=== PATIENT | male | born 1970 | race Caucasian/White ===

== ENCOUNTER 2017-05-28 16:08 | Emergency (ER) | payer BC ==
[2017-05-28 16:24] VITALS: BP 142/85
--- NOTE | 2017-05-28 16:36 | UC ---
Skin Complaint HPI - HPI Summary HPI Summary: right diop with an open area that is now having drainage and increasing erythema - History of Current Complaint Chief Complaint: UCSkin Time Seen by Provider: 05/28/17 16:12 Stated Complaint: RT LEG INJURY Hx Obtained From: Patient Onset/Duration: Sudden Onset, Lasting Days, Worse Since - getting worse daily Skin Exposure Onset/Duration: Days Ago Timing: Constant Onset Severity: Mild Current Severity: Moderate Location: Discrete Character: Redness - 8x8 cm Aggravating Factor(s): Nothing Alleviating Factor(s): Nothing Associated Signs & Symptoms: Positive: Negative Related History: Trauma - Allergy/Home Medications Allergies/Adverse Reactions: Allergies Allergy/AdvReac Type Severity Reaction Status Date / Time Codeine Allergy Fever Verified 05/28/17 16:24 Morphine Allergy Anaphylatic Verified 05/28/17 16:24 Shock Home Medications: Home Medications Atorvastatin* [Lipitor*] 5 mg PO DAILY 05/28/17 [History Confirmed 05/28/17] Levothyroxine TAB* [Synthroid TAB*] 100 mcg PO DAILY 05/28/17 [History Confirmed 05/28/17] Loratadine [Claritin 10 MG CAP] 10 mg PO DAILY 05/28/17 [History Confirmed 05/28] Montelukast Sodium TAB* [Singulair TAB*] 10 mg PO DAILY 05/28/17 [History Confirmed 05/28/17] Ranitidine HCl [Zantac 150 Maximum Streng] 150 mg PO DAILY 05/28/17 [History Confirmed 05/28/17] Review of Systems Constitutional: Negative Skin: Other - 2x2 cm skin avulsion on righ diop with 8x8 cm erythema Eyes: Negative ENT: Negative Respiratory: Negative Cardiovascular: Negative Gastrointestinal: Negative Genitourinary: Negative Motor: Negative Neurovascular: Negative Musculoskeletal: Negative Neurological: Negative Psychological: Negative Is Patient Immunocompromised?: No All Other Systems Reviewed And Are Negative: Yes PMH/Surg Hx/FS Hx/Imm Hx Previously Healthy: No Endocrine History: Hypothyroidism, Dyslipidemia Cardiovascular History: Hypertension GI/ History: Gastroesophageal Reflux - Surgical History Surgical History: Yes Surgery Procedure, Year, and Place: Testicular torsion. T & A. Devated septum - Family History Known Family History: Positive: None - Social History Occupation: Employed Full-time Lives: With Family Alcohol Use: Occasionally Substance Use Type: None Smoking Status (MU): Never Smoked Tobacco Physical Exam Triage Information Reviewed: Yes Appearance: Well-Appearing, No Pain Distress, Well-Nourished Vital Signs: Initial Vital Signs Temp 98.2 F 05/28/17 16:19 Pulse 58 05/28/17 16:19 Resp 17 05/28/17 16:19 BP 142/85 05/28/17 16:19 Pulse Ox 99 05/28/17 16:19 Vital Signs Reviewed: Yes Eye Exam: Normal Eyes: Positive: Conjunctiva Clear ENT Exam: Normal ENT: Positive: Normal ENT inspection, Hearing grossly normal. Negative: Nasal congestion, Trismus, Muffled voice, Hoarse voice Dental Exam: Normal Neck exam: Normal Neck: Positive: Supple, Nontender Respiratory Exam: Normal Respiratory: Positive: Chest non-tender, No respiratory distress, No accessory muscle use Cardiovascular Exam: Normal Cardiovascular: Positive: RRR, Pulses Normal, Brisk Capillary Refill Abdominal Exam: Normal Musculoskeletal Exam: Normal Musculoskeletal: Positive: Strength Intact, ROM Intact, Edema @ - right ankle distal to skin avulsion Neurological Exam: Normal Psychological Exam: Normal Psychological: Positive: Normal Response To Family, Age Appropriate Behavior Skin Exam: Other Skin: Positive: breakdown - 2x2 cm with 8x8 erythema right lower leg, Other Course/Dx - Course Course Of Treatment: mild soap and water wash, keflex and bactrim, elevate legs follow with Dr. James - Diagnoses Provider Diagnoses: Cellulitis with wound rle, hypertension in poor control Discharge - Discharge Plan Condition: Stable Disposition: HOME Prescriptions: Cephalexin CAP* [Keflex CAP*] 500 mg PO QID #28 cap Cephalexin CAP* [Keflex CAP*] 500 mg PO QID #28 cap Mupirocin 2% CREAM* [Bactroban 2% CREAM*] 1 applic TOPICAL TID #1 tube Mupirocin 2% CREAM* [Bactroban 2% CREAM*] 1 applic TOPICAL TID #1 tube Sulfamethox/Trimethoprim DS* [Bactrim DS 800/160 TAB*] 1 tab PO BID #20 tab Sulfamethox/Trimethoprim DS* [Bactrim DS 800/160 TAB*] 1 tab PO BID #20 tab Patient Education Materials: Wound Infection (ED) Referrals: Kendy James MD [Medical Doctor] - 3 Days
== END 2017-05-28 16:39 | disposition home or self-care (01) ==
LOC: UCCORT 16:08
DX: L03.115 Cellulitis of right lower limb (principal); E03.9 Hypothyroidism, unspecified; E78.5 Hyperlipidemia, unspecified; I10 Essential (primary) hypertension; K21.9 Gastro-esophageal reflux disease without esophagitis; Z88.5 Allergy status to narcotic agent
CPT/HCPCS: 99202; G0463

== ENCOUNTER 2017-06-02 12:55 | Emergency (ER) | payer BC ==
[2017-06-02 16:46] VITALS: BP 123/80
--- NOTE | 2017-06-02 16:52 | UC ---
Skin Complaint HPI - HPI Summary HPI Summary: Diagnosed with skin wound with cellulitis. Still open with a little more pain. No fevers. - History of Current Complaint Chief Complaint: UCSkin Time Seen by Provider: 06/02/17 16:43 Stated Complaint: RIGHT LEG RECHECK Hx Obtained From: Patient Onset/Duration: Sudden Onset, Lasting Days - 7 days, Still Present Skin Exposure Onset/Duration: Days Ago - 7 Onset Severity: Mild Current Severity: Mild Location: Discrete - right lower diop Character: Swelling, Pain, Redness Aggravating Factor(s): Touch Alleviating Factor(s): Treatment [employer]: - antibiotics. Associated Signs & Symptoms: Positive: Tenderness. Negative: Throat Tightening , Rash, Abdominal Pain, Red Streaks Related History: Trauma - hit diop on a desk. - Allergy/Home Medications Allergies/Adverse Reactions: Allergies Allergy/AdvReac Type Severity Reaction Status Date / Time Codeine Allergy Fever Verified 06/02/17 14:36 Morphine Allergy Anaphylatic Verified 06/02/17 14:36 Shock Review of Systems Skin: Other - wound right lower leg with cellulitis Is Patient Immunocompromised?: No All Other Systems Reviewed And Are Negative: Yes PMH/Surg Hx/FS Hx/Imm Hx Endocrine History: Hypothyroidism - Surgical History Surgical History: Yes Surgery Procedure, Year, and Place: Testicular torsion. T & A. Devated septum - Family History Known Family History: Negative: Hypertension - Social History Occupation: Employed Full-time Lives: With Family Alcohol Use: Occasionally Substance Use Type: None Smoking Status (MU): Never Smoked Tobacco Have You Smoked in the Last Year: No Physical Exam Triage Information Reviewed: Yes Appearance: Well-Appearing, No Pain Distress, Obese Vital Signs: Initial Vital Signs Temp 98.2 F 06/02/17 14:30 Pulse 77 06/02/17 14:30 Resp 18 06/02/17 14:30 BP 119/77 06/02/17 14:30 Pulse Ox 99 06/02/17 14:30 Vital Signs Reviewed: Yes Eyes: Positive: Conjunctiva Clear Neck exam: Normal Respiratory Exam: Normal Cardiovascular Exam: Normal Musculoskeletal: Positive: Edema @ - bilateral pretibial 2+ Neurological Exam: Normal Psychological Exam: Normal Skin: Positive: Other - Open wound right lower leg 2.0x1.5cm with cream. Surrounding erythema 5x6cm. Not warm, but mildly tender. Course/Dx - Course Course Of Treatment: The wound shows excellent healing and the redness is smaller compared with previous note. - Differential Diagnoses - Skin Complaint Differential Diagnoses: Cellulitis, Impetigo, Lymphangitis - Diagnoses Provider Diagnoses: Open wound right lower leg. Cellulitis right lower leg Discharge - Discharge Plan Condition: Stable Disposition: HOME Referrals: Kendy James MD [Primary Care Provider] - Additional Instructions: The wound is healing well and the cellulitis is improving. Continue local wound care. Hot packs can be helpful, along with continuing to use the compression stockings.
== END 2017-06-02 17:02 | disposition home or self-care (01) ==
LOC: UCCORT 12:55
DX: S81.801D Unspecified open wound, right lower leg, subsequent encounter (principal); L03.115 Cellulitis of right lower limb; X58.XXXD Exposure to other specified factors, subsequent encounter; E03.9 Hypothyroidism, unspecified; E66.9 Obesity, unspecified; Z88.5 Allergy status to narcotic agent
CPT/HCPCS: 99212; G0463

== ENCOUNTER 2017-06-29 18:37 | Emergency (ER) | payer BC ==
--- NOTE | 2017-06-29 19:28 | UC ---
Throat Pain/Nasal Bakari HPI - HPI Summary HPI Summary: 47 year old male presents with complains of sinus congestion and pressure. - History of Current Complaint Stated Complaint: SINUS Time Seen by Provider: 06/29/17 19:28 Hx Obtained From: Patient Onset/Duration: Sudden Onset Severity: Moderate Cough: Nonproductive Associated Signs & Symptoms: Positive: Sinus Discomfort - Allergies/Home Medications Allergies/Adverse Reactions: Allergies Allergy/AdvReac Type Severity Reaction Status Date / Time Codeine Allergy Fever Verified 06/29/17 19:34 Morphine Allergy Anaphylatic Verified 06/29/17 19:34 Shock Home Medications: Home Medications Ibuprofen TAB* [Advil TAB*] 600 mg PO Q6H PRN 06/29/17 [History Confirmed ] Phenylephrine-Aspirin [Sonya-[place] Plus Sinus F] 2 tab PO QID 06/29/17 [ History Confirmed 06/29/17] PMH/Surg Hx/FS Hx/Imm Hx Previously Healthy: Yes - Surgical History Surgical History: Yes Surgery Procedure, Year, and Place: Testicular torsion. T & A. Devated septum - Family History Known Family History: Positive: None Negative: Hypertension - Social History Alcohol Use: Occasionally Substance Use Type: None Smoking Status (MU): Never Smoked Tobacco Have You Smoked in the Last Year: No Review of Systems Constitutional: Negative Skin: Negative Eyes: Negative ENT: Sinus Congestion, Sinus Pain/Tenderness Respiratory: Negative Cardiovascular: Negative Gastrointestinal: Negative Genitourinary: Negative Motor: Negative Neurovascular: Negative Musculoskeletal: Negative Neurological: Negative Psychological: Negative All Other Systems Reviewed And Are Negative: Yes Physical Exam Triage Information Reviewed: Yes Vital Signs Reviewed: Yes Eye Exam: Normal ENT: Positive: Nasal congestion, Nasal drainage, Sinus tenderness Dental Exam: Normal Neck exam: Normal Neck: Positive: 1 Respiratory Exam: Normal Cardiovascular Exam: Normal Abdominal Exam: Normal Musculoskeletal Exam: Normal Neurological Exam: Normal Psychological Exam: Normal Skin Exam: Normal Throat Pain/Nasal Course/Dx - Differential Dx/Diagnosis Provider Diagnoses: sinusitis Discharge - Discharge Plan Condition: Stable Disposition: HOME Prescriptions: Amoxicillin/Clavulanate TAB* [Augmentin TAB 875*] 875 mg PO BID #20 tab Methylprednisolone [Medrol Dosepak 4 MG*] 4 mg PO .SEE PAT INSTRUCTION #21 tab Patient Education Materials: Sinusitis (ED) Referrals: Kendy James MD [Primary Care Provider] -
[2017-06-29 19:34] VITALS: BP 133/80
[2017-06-29] MEDS ORDERED: Amoxicillin/Clavulanate TAB* 875 MG PO ONE (19:58)
[2017-06-29] MEDS ORDERED: Lidocaine 2% VISCOUS* 15 ML UDC SWISH SPIT ONE (19:58)
== END 2017-06-29 20:12 | disposition home or self-care (01) ==
LOC: UCCORT 18:37
DX: J32.9 Chronic sinusitis, unspecified (principal); Z72.89 Other problems related to lifestyle
CPT/HCPCS: 99212; A9270-GY; G0463

== ENCOUNTER 2018-10-20 12:07 | Emergency (ER) | payer BC ==
[2018-10-20 14:23] VITALS: BP 123/78
--- NOTE | 2018-10-20 14:35 | UC ---
UC General HPI - HPI Summary HPI Summary: pcp called in Augmentin for a sinus infection 4 days ago. the sinuses are much improved; however, he has an ongoing cough and wheezing that keeps him awake at night. no fever or hx asthma. - History of Current Complaint Chief Complaint: UCGeneralIllness Stated Complaint: CHEST CONGESTION Time Seen by Provider: 10/20/18 14:28 Hx Obtained From: Patient Onset/Duration: Gradual Onset Timing: Constant Pain Intensity: 3 Associated Signs & Symptoms: Positive: Cough, SOB, Wheezing. Negative: Chest Pain, Fever - Allergy/Home Medications Allergies/Adverse Reactions: Allergies Allergy/AdvReac Type Severity Reaction Status Date / Time codeine Allergy Fever Verified 10/20/18 14:24 morphine Allergy Anaphylatic Verified 10/20/18 14:24 Shock Home Medications: Home Medications Fenofibrate(NF) [Tricor(NF)] 48 mg PO DAILY 10/20/18 [History Confirmed 10/20/18 ] Sertraline HCl [Zoloft] 25 mg PO DAILY 10/20/18 [History Confirmed 10/20/18] PMH/Surg Hx/FS Hx/Imm Hx Endocrine History: Thyroid Disease, Dyslipidemia Respiratory History: Bronchitis GI/ History: Gastroesophageal Reflux Psychological History: Depression - Surgical History Surgical History: Yes Surgery Procedure, Year, and Place: Testicular torsion. T & A. Devated septum - Family History Known Family History: Positive: None Negative: Hypertension - Social History Lives: With Family Alcohol Use: Occasionally Substance Use Type: None Smoking Status (MU): Never Smoked Tobacco Have You Smoked in the Last Year: No Review of Systems All Other Systems Reviewed And Are Negative: Yes Respiratory: Positive: Shortness Of Breath, Cough Physical Exam Triage Information Reviewed: Yes Appearance: Well-Appearing Vital Signs: Initial Vital Signs Temp 98.9 F 10/20/18 14:16 Pulse 62 10/20/18 14:16 Resp 16 10/20/18 14:16 BP 123/78 10/20/18 14:16 Pulse Ox 99 10/20/18 14:16 Vital Signs Reviewed: Yes Eyes: Positive: Conjunctiva Clear ENT: Positive: Pharynx normal, TMs normal. Negative: Nasal drainage Neck: Positive: Supple, Nontender, No Lymphadenopathy Respiratory: Positive: No respiratory distress, Decreased breath sounds, Other: - faint rhonchi/wheezes. Cardiovascular: Positive: RRR, No Murmur Abdomen Description: Positive: Nontender Musculoskeletal: Positive: ROM Intact Neurological: Positive: Alert Psychological: Positive: Age Appropriate Behavior Skin Exam: Normal Diagnostics - Radiology No standard instances Radiology Interpretation Completed By: Radiologist - cxr=nad Re-Evaluation - Re-Evaluation First Eval Re-Evaluation Time: 14:57 Change: Improved - BETTER AERATION WITH MUCH LESS WHEEZING AND THE RHONCHI CLEARED Course/Dx - Differential Dx - Multi-Symptom Differential Diagnoses: Other - no infiltrate on cxr - Diagnoses Provider Diagnosis: Bronchitis Discharge - Sign-Out/Discharge Documenting (check all that apply): Patient Departure All imaging exams completed and their final reports reviewed: Yes - Discharge Plan Condition: Stable Disposition: HOME Prescriptions: Albuterol HFA INHALER* [Ventolin HFA Inhaler*] 2 puff INH Q6H #1 mdi predniSONE TAB* [Deltasone TAB*] 50 mg PO DAILY #5 tab Patient Education Materials: Acute Bronchitis (ED) Referrals: Kendy James MD [Primary Care Provider] - 5 Days - Billing Disposition and Condition Condition: STABLE Disposition: Home
[2018-10-20] MEDS ORDERED: predniSONE TAB* 20 MG PO ONE (14:36)
[2018-10-20] MEDS ORDERED: Albuterol 2.5 MG/3 ML NEB.SOL* (0.083%) INH ONE (14:36)
== END 2018-10-20 15:08 | disposition home or self-care (01) ==
LOC: UCCORT 12:07
DX: J40 Bronchitis, not specified as acute or chronic (principal); E07.9 Disorder of thyroid, unspecified; E78.5 Hyperlipidemia, unspecified; K21.9 Gastro-esophageal reflux disease without esophagitis; F32.9 Major depressive disorder, single episode, unspecified; Z88.5 Allergy status to narcotic agent
CPT/HCPCS: 71046; 99212; G0463; J7512